=== PATIENT | female | born 1945 | race Caucasian/White ===

== ENCOUNTER → 2017-01-18 | Day surgery (SDC) | payer OTHER ==
[~2017-01-18] VITALS: Ht 154.9 cm; Wt 62.7 kg
[~2017-01-18] MED LIST: *RESP: ALBUTEROL 2.5 MG/3 ML NEB (PRN) PERIprocedural Use ONLY NEB ONE; ACETAMINOPHEN 1000 MG/100 ML 0 ML IV ONE; ACETAMINOPHEN 500 MG CPLT PO PRN; ATROPINE SULFATE 1% OPHT SOLN 2 ML BTL ONE; BACITRACIN TOP OINT 15 GM TUBE ONE; BALANCED SALT SOLN OPHT IRRIG 15 ML BTL ONE; CHLORHEXIDINE GLUCONATE 2 % 1 PACK (2 CLOTHS) TOPICAL PRN; DEXAMETHASONE SOD PHOS 4 MG/ML VIAL ONE; DO NOT ADM ANY ANTICOAGULANT DRUGS PRN; EPINEPHrine HCL (1:1000) 1 MG/ML VIAL ONE; INSULIN HUMAN REGULAR 1,000 UNITS/10 ML VIAL SQ PRN; LACTATED RINGER'S 1000 ML IV PRN; LIDOCAINE HCL 1% PF 5 ML AMPULE OTHER ONE; METOPROLOL TARTRATE 25 MG TAB PO PRN; OCUVTAB4 PO; ONDANSETRON HCL 4 MG/2 ML VIAL IV PUSH ONE; PHENYLEPHRINE HCL 2.5% OPTH SOLN 2 ML BTL LEFT EYE SCH; POVIDONE IODINE 5% (ANTISEPSIS KIT) 4 APPLICATIONS EACH NARE PRN; PROPOFOL 200 MG/20 ML AMP IV ONE; SODIUM CHLORID 0.9% 500 ML IV PRN; SODIUM CHLORIDE FLUSH BID IV FLUSH SCH; SODIUM CHLORIDE FLUSH PRN IV FLUSH; STERILE WATER FOR INJECTION 20 ML VIAL ONE; TOBRAMYCIN 0.3%/DEXAMETHASONE 0.1% OPHT SUSP 5 ML BTL ONE; TOBRAMYCIN/DEXAMETHASONE OPTH OINT 3.5 GM TUBE ONE; TRIAMCINOLONE ACETONIDE/PF 40 MG/ML OPTH VIAL ONE; TROPICAMIDE 1% OPHT SOLN 15 ML BTL LEFT EYE SCH; ceFAZolin INJ 1,000 MG VIAL ONE; ePHEDrine/NS 25 MG/5 ML SYR IV ONE
[2017-01-18] MEDS: CYCLOPENTOLATE HCL 1% OPHT SOLN 2 ML BTL LEFT EYE SCH ×3 (07:05→07:35)
[2017-01-18] MEDS: ATROPINE SULFATE 1% OPHT SOLN 5 ML BTL LEFT EYE SCH ×3 (07:05→07:35)
[2017-01-18 07:10] LABS: AUTOMATED NEUTROPHIL # 5.2 TH/MM3 (1.8-7.7); BASOPHIL % 0.5 % (0.0-2.0); EOSINOPHIL # 0.1 TH/MM3 (0-0.4); EOSINOPHIL % 1.6 % (0.0-4.0); HEMATOCRIT 45.8 % (35.0-46.0); HEMOGLOBIN 15.6 GM/DL (11.6-15.3); LYMPH % 25.3 % (9.0-44.0); LYMPHOCYTE # 2.1 TH/MM3 (1.0-4.8); MEAN CORPUSCULAR HEMOGLOBIN 32.3 PG (27.0-34.0); MEAN PLATELET VOLUME 9.2 FL (7.0-11.0); MONO % 8.3 % (0.0-8.0); MONOCYTE # 0.7 TH/MM3 (0-0.9); NEUT % 64.3 % (16.0-70.0); PLATELET COUNT 217 TH/MM3 (150-450); RED BLOOD COUNT 4.82 MIL/MM3 (4.00-5.30); WHITE BLOOD COUNT 8.1 TH/MM3 (4.0-11.0)
[2017-01-18 11:08] VITALS: BP 136/69; PULSE 70; RESP 16; TEMP 97; O2SAT 97
--- NOTE | 2017-01-18 13:57 | MP ---
cc: ISSAC CALLAWAY M.D. 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 History of macular degeneration, left eye. 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 History of macular degeneration, left eye. PROCEDURE Trans pars plana vitrectomy with intraoperative use of Kenalog, left eye. ANESTHESIA General laryngeal mask anesthesia. INDICATION Ms. 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 Her vision was down to approximately 100 and J seven and she wished to proceed electively with vitrectomy and lysis of the vitreomacular adhesion and traction, left eye. The risks and benefits of surgery were discussed with the patient. The comorbidity of age-related macular degeneration was explained that it may limit her visual recovery, the risk of cataract formation as she is phakic was also discussed. She wished to proceed and informed consent was obtained. No guarantee was made as to visual outcome. PROCEDURE She was brought to [facility] operating room one and placed on the operating table. Appropriate anesthesia monitoring devices were applied and she was placed under general anesthesia using a laryngeal mask. The left eye was identified as the operative site and then prepped and draped in the usual sterile fashion. A lid speculum was placed. Microscope was brought around and adjusted. At this point an appropriate time-out was called with the surgical team agreeing to the planned surgical procedure and the operative site. Using the Jorge L 23-gauge vitrectomy system the trocar cannulas were placed 4 mm posterior to the limbus after first displacing the conjunctiva and with a beveled scleral entrance. First one was placed at approximately 3 o'clock and verified to be in the posterior chamber. An infusion cannula was affixed to it and was turned on. Two additional trocar cannulas were placed in similar fashion at approximately 10 and 2 o'clock. A small amount of Kenalog was injected into the vitreous cavity to help visualize the vitreous. Using the flat contact lens the eye was entered with the endo eliminator light pipe and vitrectomy cutter. A core vitrectomy was carried out, using both the vitrector on aspiration and also the soft tipped linear extrusion needle, the posterior hyaloid was removed and then using the BIOM wide angle viewing system the peripheral retina was removed. Plugs were placed back in the eye. The fundus was inspected with the indirect ophthalmoscope aided by scleral depression. No breaks were found. A soft tipped linear extrusion needle was used under BIOM viewing to perform an air-fluid exchange. The air was then exchanged out for 20% mixture of SF6. The plugs were placed back in the eye and then the cannulas were removed one by one with tamponade of the site with a cotton swab and diathermy to the overlying conjunctival wound. This left the eye with good pressure and no visible air leaks. Atropine drops were placed on the cornea followed by Sub-tenons injection of Ancef 125 mg in half cc and Decadron 2 mg in half cc. The lid speculum was removed and the patient was undraped. TobraDex ointment was placed on the cornea and then the left eye was patched and shielded. The patient had the laryngeal mask removed in the room and was returned to recovery lying on her right side. When awake and cooperative she will be asked to start face-down positioning. MD JUAN JOSE Chand/JAG /9:30 AM /1:36 PM
--- NOTE | 2017-01-18 14:42 | EKG ---
Date Performed: 01/18/2017 Time Performed: 07:11:07 PTAGE: 71 years EKG: SINUS BRADYCARDIA RIGHT BUNDLE BRANCH BLOCK ABNORMAL ECG NO PREVIOUS TRACING DOCTOR: Mei Luz Interpretating Date/Time 01/18/2017 14:42:22
== END | disposition home or self-care (01) ==
LOC: HSDC 06:02
PROVIDERS: ATTEND Ophthalmology
DX: H43.822 Vitreomacular adhesion, left eye (principal); H35.342 Macular cyst, hole, or pseudohole, left eye; R00.1 Bradycardia, unspecified; I45.10 Unspecified right bundle-branch block
CPT/HCPCS: 00145; 67025; 67036; 85025; 93005; 94640; J0171; J0690; J1100; J2405; J3010; J3300; J7120; J7613; J0131

== ENCOUNTER → 2017-04-19 | Day surgery (SDC) | payer OTHER ==
[~2017-04-19] VITALS: Ht 154.9 cm; Wt 61.6 kg
[~2017-04-19] MED LIST changes: -*RESP: ALBUTEROL 2.5 MG/3 ML NEB (PRN) PERIprocedural Use ONLY NEB ONE; -ACETAMINOPHEN 1000 MG/100 ML 0 ML IV ONE; +ASPI1TAB57 PO; -BACITRACIN TOP OINT 15 GM TUBE ONE; +DEXAMETHASONE SOD PHOS 4 MG/ML VIAL IV ONE; +GLYCOPYRROLATE 1 MG/5 ML SYRINGE IV PUSH ONE; -INSULIN HUMAN REGULAR 1,000 UNITS/10 ML VIAL SQ PRN; +LACTATED RINGER'S 1000 ML INJ 1,000 ML IV ONE; -LIDOCAINE HCL 1% PF 5 ML AMPULE OTHER ONE; +LIDOCAINE HCL 1% PF 5 ML SYRINGE OTHER ONE; +ONDANSETRON HCL 4 MG/2 ML VIAL IM PRN; +ONDANSETRON HCL 4 MG/2 ML VIAL IV PUSH PRN; +PHENYLEPH/NS 1000 MCG/10 ML SYR IV ONE; -PHENYLEPHRINE HCL 2.5% OPTH SOLN 2 ML BTL LEFT EYE SCH; -PROPOFOL 200 MG/20 ML AMP IV ONE; -SODIUM CHLORIDE FLUSH BID IV FLUSH SCH; -SODIUM CHLORIDE FLUSH PRN IV FLUSH; -TOBRAMYCIN 0.3%/DEXAMETHASONE 0.1% OPHT SUSP 5 ML BTL ONE; -TROPICAMIDE 1% OPHT SOLN 15 ML BTL LEFT EYE SCH; -ePHEDrine/NS 25 MG/5 ML SYR IV ONE; +ePHEDrine/NS 25 MG/5 ML SYRINGE IV ONE; +oxyCODONE/ACETAMINOPHEN 5 MG/325 MG TAB PO PRN
[2017-04-19] MEDS: ATROPINE SULFATE 1% OPHT SOLN 5 ML BTL RIGHT EYE SCH ×3 (08:30→09:00)
[2017-04-19] MEDS: PHENYLEPHRINE HCL 2.5% OPTH SOLN 2 ML BTL RIGHT EYE SCH ×3 (08:30→09:00)
[2017-04-19] MEDS: CYCLOPENTOLATE HCL 1% OPHT SOLN 2 ML BTL RIGHT EYE SCH ×3 (08:30→09:00)
[2017-04-19] MEDS: TROPICAMIDE 1% OPHT SOLN 15 ML BTL RIGHT EYE SCH ×3 (08:30→09:00)
[2017-04-19 08:42] LABS: AUTOMATED NEUTROPHIL # 4.2 TH/MM3 (1.8-7.7); BASOPHIL % 0.7 % (0.0-2.0); EOSINOPHIL # 0.1 TH/MM3 (0-0.4); EOSINOPHIL % 1.7 % (0.0-4.0); HEMATOCRIT 44.1 % (35.0-46.0); HEMOGLOBIN 15.5 GM/DL (11.6-15.3); LYMPH % 24.9 % (9.0-44.0); LYMPHOCYTE # 1.6 TH/MM3 (1.0-4.8); MEAN CELL VOLUME 94.1 FL (80.0-100.0); MEAN CORPUSCULAR HGB CONC 35.1 % (32.0-36.0); MEAN PLATELET VOLUME 9.3 FL (7.0-11.0); MONO % 8.5 % (0.0-8.0); MONOCYTE # 0.6 TH/MM3 (0-0.9); NEUT % 64.2 % (16.0-70.0); PLATELET COUNT 197 TH/MM3 (150-450); RED BLOOD COUNT 4.69 MIL/MM3 (4.00-5.30); RED CELL DISTRIBUTION WIDTH 13.3 % (11.6-17.2); WHITE BLOOD COUNT 6.6 TH/MM3 (4.0-11.0)
--- NOTE | 2017-04-19 11:33 | MP ---
cc: ISSAC CALLAWAY M.D. DATE OF SURGERY 04/19/2017 PREOPERATIVE DIAGNOSIS Full-thickness macular hole right eye. POSTOPERATIVE DIAGNOSIS Full-thickness macular hole right eye. PROCEDURE Trans pars plana vitrectomy with ICG guided internal limiting membrane peel, gas-fluid exchange right eye. SURGEON Dr. Issac Callaway ANESTHESIA General laryngeal mask anesthesia INDICATIONS Ms. Moreno is a 71-year-old woman who developed a macular hole in her left eye which was operated at the end of December. She had vitreoretinal traction in her right eye and on her recent exam was found to have develop a full-thickness macular hole now in the right eye. She wished to proceed electively with vitrectomy, gas-fluid exchange and postop face-down positioning to try and close the hole in her right eye. The risks and benefits of surgery were discussed with her including the fact that she probably would develop a cataract in the postoperative period. Informed consent was obtained. No guarantee was made as to visual outcome. PROCEDURE NOTE She was brought to [facility] operating room one on the eye stretcher. Appropriate anesthesia monitoring devices were applied and she was placed under general anesthesia using laryngeal mask. The right eye was identified as the operative site and then prepped and draped in the usual sterile fashion. A lid speculum was placed. The microscope was brought around and adjusted. Using the Jorge L 23-gauge vitrectomy system, the trocar cannulas were placed 4 mm posterior to the limbus after first displacing the conjunctiva and with a beveled entrance. The first one was placed at approximately 8:45 o'clock and verified to be in the posterior chamber. An infusion cannula was affixed to it and turned on. Two additional trocar cannulas were placed at 10 and 2 o'clock. The eye was entered with the Endo-open hearth door liner light pipe and vitrectomy cutter after first injecting a small amount of Kenalog into the vitreous for visualization. Using the flat contact lens, a core vitrectomy was carried out after which the posterior hyaloid was elevated using aspiration on the vitrectomy probe up and away from the optic nerve and macular hole. It was then removed out to the mid periphery. ICG was injected into the eye and allowed to settle on the macula. The excess IG was then removed and the Isma membrane scraper was used to scrape the internal limiting membrane. Next, the flat contact lens was switched out for the Biome wide angle viewing system in the peripheral vitrectomy was carried through. The plugs were placed back in the eye and the fundus was inspected with the indirect ophthalmoscope with scleral depression. No retinal breaks were found. Using the Biome wide angle viewing lens and the soft tipped linear extrusion needle, an air-fluid exchange was performed. The air was then exchanged out for a 25% mixture of SF6. The plugs were placed back in the cannulas and they were removed one by one with tamponade of this site with a cotton swab and diathermy to the overlying conjunctival wound leaving the eye with good pressure and no visible air leaks. Subconjunctival injections of Ancef 125 mg in a half cc and Decadron 2 mg in half cc were given at separate sites. Atropine drops were placed on the cornea and then the lid speculum was removed and the patient was undraped. TobraDex ointment was placed on the cornea and then the right eye was patched and shielded. The patient had the laryngeal mask removed in the room and was returned to recovery in good condition laying on her left side. When awake and alert, she will be asked to assume face down positioning. MD JUAN JOSE Chand/JOE /11:05 AM /11:22 AM
[2017-04-19 12:10] VITALS: BP 109/58; PULSE 84; RESP 18; TEMP 97.2; O2SAT 96
--- NOTE | 2017-04-19 23:04 | EKG ---
Date Performed: 04/19/2017 Time Performed: 08:04:24 PTAGE: 71 years EKG: SINUS BRADYCARDIA MARKED RIGHT AXIS DEVIATION LOW QRS VOLTAGE IN PRECORDIAL LEADS RIGHT BUN DLE BRANCH BLOCK ABNORMAL ECG PREVIOUS TRACING : 01/18/2017 07.11 Since the prior tracing, there has been no significant abreu DOCTOR: Khang Ceja Interpretating Date/Time 04/19/2017 23:02:55
== END | disposition home or self-care (01) ==
LOC: HSDC 07:40
PROVIDERS: ATTEND Ophthalmology
DX: H35.341 Macular cyst, hole, or pseudohole, right eye (principal); R94.31 Abnormal electrocardiogram [ECG] [EKG]
CPT/HCPCS: 00145; 67041; 85025; 93005; J0171; J0690; J1100; J2370; J2405; J3010; J3300; J7120